=== PATIENT | male | born 1935 | race Caucasian/White ===

== ENCOUNTER 2018-10-21 17:05 | Inpatient (IN) | payer MEDICARE ==
[~2018-10-21] VITALS: Ht 175.3 cm; Wt 80.0 kg
[2018-10-21 17:42] LABS: BASOPHILS % (AUTO) 0.3 % (0-1); EOSINOPHILS # (AUTO) 0.1 X10'3 (0-0.9); EOSINOPHILS % (AUTO) 2.2 % (0-6); HEMATOCRIT 26.7 % (42.0-52.0); HEMOGLOBIN 8.9 g/dl (14.0-17.9); LYMPHOCYTES # (AUTO) 0.8 X10'3 (1.1-4.8); MEAN CORPUSCULAR HGB CONC 33.4 % (33.0-36.5); MEAN CORPUSCULAR VOLUME 95.9 FL (78-98); MEAN PLATELET VOLUME 7.9 FL (7.4-10.4); MONOCYTES # (AUTO) 0.6 X10'3 (0-0.9); MONOCYTES % (AUTO) 10.6 % (2-12); NEUTROPHILS # (AUTO) 3.9 X10'3 (1.8-7.7); NEUTROPHILS % (AUTO) 72.9 % (42-75); PLATELET COUNT 142 X10'3 (140-440); RED BLOOD COUNT 2.78 X10'6 (4.70-6.10); RED CELL DISTRIBUTION WIDTH 15.8 % (11.5-14.5); WHITE BLOOD COUNT 5.4 X10'3 (4.5-11.0)
[2018-10-21 17:58] LABS: ALANINE AMINOTRANSFERASE 23 U/L (12-78); ALBUMIN 2.3 G/DL (3.4-5.0); ALBUMIN/GLOBULIN RATIO 0.9 (1.1-1.5); ALKALINE PHOSPHATASE 101 IU/L (46-116); ANION GAP 11 (8-16); ASPARTATE AMINO TRANSFERASE 21 U/L (10-37); BILIRUBIN,TOTAL 0.3 MG/DL (0.1-1.0); BLOOD UREA NITROGEN 56 MG/DL (7-18); BUN/CREATININE RATIO 19.4 (5.4-32.0); CALCIUM 9.2 MG/DL (8.5-10.1); CHLORIDE 106 MMOL/L (99-107); CREATININE 2.89 MG/DL (0.60-1.10); GLUCOSE 105 MG/DL (70-104); MAGNESIUM 2.1 MG/DL (1.5-2.4); PHOSPHORUS 4.1 MG/DL (2.3-4.5); POTASSIUM 3.8 MMOL/L (3.5-5.1); SODIUM 139 MMOL/L (135-145); TOTAL CARBON DIOXIDE 22.2 MMOL/L (24-32); eGFR 21 ML/MIN
[2018-10-21 18:08] LABS: PARTIAL THROMBOPLASTIN TIME 26 SECONDS (22-32); PROTHROMBIN TIME 10.5 SECONDS (9.0-12.0)
[2018-10-21] MEDS ORDERED: aspirin 325mg tablet PO ONE (18:10)
[2018-10-21 18:24] LABS: CLARITY,URINE CLOUDY (Clear); COLOR,URINE YELLOW (Yellow); GLUCOSE, URINE NEGATIVE (Neg); KETONES,URINE NEGATIVE (Neg); LEUKOCYTE ESTERASE ,URINE SMALL (Neg); NITRITES, URINE NEGATIVE (Neg); OCCULT BLOOD,URINE MODERATE (Neg); PROTEIN,URINE >=300 mg/dl (Neg); UROBILINOGEN,URINE 0.2 E.U/dL (0.2-1.0)
[2018-10-21 18:26] LABS: UA COLLECTION TYPE STRAIGHT CATH
[2018-10-21] MEDS ORDERED: normal saline 1000ML IV soln IVB ONE (18:35)
[2018-10-21 18:38] LABS: BACTERIA,URINE 4+ /HPF (Neg); SQUAMOUS EPITHELIAL CELL,UR NONE SEEN /LPF (FEW); WBC,URINE TNTC /HPF (0-4)
[2018-10-21 18:39] LABS: RBC,URINE 0-2 /HPF (0-2)
[2018-10-21] MEDS ORDERED: CefTRIAXone/D5W-Rocephin 1gm 50 ML IV ONE (19:10)
[2018-10-21] MEDS ORDERED: mag hydrox/Alum hydrox/simeth 30ml oral suspension PO PRN (19:40)
[2018-10-21] MEDS ORDERED: ondansetron/PF 4mg/2ml inj IV PRN (19:40)
[2018-10-21] MEDS ORDERED: acetaminophen 325mg tablet PO PRN (19:40)
[2018-10-21] MEDS ORDERED: magnesium hydroxide 30ml (MOM) UD suspension PO PRN (19:40)
[2018-10-21] MEDS ORDERED: ALLO100T PO (19:42)
[2018-10-21] MEDS ORDERED: ASPI-1265 PO (19:42)
[2018-10-21] MEDS ORDERED: LISI10TA4 PO (19:57)
[2018-10-21] MEDS ORDERED: METO25TA6 PO (19:57)
[2018-10-21] MEDS ORDERED: TORS10TA17 PO (19:57)
[2018-10-21] MEDS ORDERED: OXYB10TA4 PO (19:57)
[2018-10-21] MEDS ORDERED: ATOR80TA PO (19:57)
[2018-10-21] MEDS ORDERED: CLON-529 PO (19:57)
[2018-10-21 20:15] LABS: HEMOGLOBIN A1C 5.7 % (4.5-6.2)
[2018-10-21] MEDS: heparin, porcine 5000 units/ml vial SQ SCH (20:16)
[2018-10-21] MEDS ORDERED: non-formulary drug (Atorvastatin Calcium* (Lipitor*) 1 TABLET) PO SCH (21:00)
[2018-10-21] MEDS: cloNIDine 0.1 mg tablet PO SCH (21:14)
[2018-10-21] MEDS: atorvastatin 20mg tablet PO SCH (21:14)
[2018-10-21 21:30] VITALS: BP 188/98
[2018-10-22 02:25] VITALS: BP 184/89
[2018-10-22 06:45] LABS: EOSINOPHILS # (AUTO) 0.2 X10'3 (0-0.9); EOSINOPHILS % (AUTO) 3.7 % (0-6); HEMATOCRIT 28.5 % (42.0-52.0); HEMOGLOBIN 9.6 g/dl (14.0-17.9); LYMPHOCYTES # (AUTO) 0.8 X10'3 (1.1-4.8); LYMPHOCYTES % (AUTO) 16.3 % (21-51); MEAN CORPUSCULAR HEMOGLOBIN 32.5 PG (27.0-31.0); MEAN CORPUSCULAR HGB CONC 33.8 % (33.0-36.5); MEAN CORPUSCULAR VOLUME 96.2 FL (78-98); MEAN PLATELET VOLUME 8.3 FL (7.4-10.4); MONOCYTES # (AUTO) 0.4 X10'3 (0-0.9); NEUTROPHILS # (AUTO) 3.3 X10'3 (1.8-7.7); PLATELET COUNT 129 X10'3 (140-440); RED BLOOD COUNT 2.97 X10'6 (4.70-6.10); RED CELL DISTRIBUTION WIDTH 15.7 % (11.5-14.5); WHITE BLOOD COUNT 4.7 X10'3 (4.5-11.0)
[2018-10-22 06:49] LABS: ALANINE AMINOTRANSFERASE 23 U/L (12-78); ALBUMIN 2.3 G/DL (3.4-5.0); ALBUMIN/GLOBULIN RATIO 0.9 (1.1-1.5); ALKALINE PHOSPHATASE 98 IU/L (46-116); ANION GAP 9 (8-16); ASPARTATE AMINO TRANSFERASE 21 U/L (10-37); BILIRUBIN,TOTAL 0.4 MG/DL (0.1-1.0); BLOOD UREA NITROGEN 51 MG/DL (7-18); BUN/CREATININE RATIO 19.7 (5.4-32.0); CALCIUM 9.2 MG/DL (8.5-10.1); CHLORIDE 108 MMOL/L (99-107); CREATININE 2.59 MG/DL (0.60-1.10); GLUCOSE 99 MG/DL (70-104); POTASSIUM 3.6 MMOL/L (3.5-5.1); SODIUM 140 MMOL/L (135-145); TOTAL CARBON DIOXIDE 23.2 MMOL/L (24-32); eGFR 24 ML/MIN
[2018-10-22 06:52] LABS: CHOL/HDL RATIO 2.1 (0.00-4.99); CHOLESTEROL 160 MG/DL (0-200); HDL CHOLESTEROL 75 MG/DL (35-60); LDL CHOLESTEROL 70 MG/DL (50-100); TRIGLYCERIDES 52 MG/DL (20-135)
[2018-10-22 07:04] VITALS: BP 191/94
[2018-10-22] MEDS ORDERED: hydrALAZINE 20mg/ml inj. IV PRN (08:00)
[2018-10-22] MEDS ORDERED: non-formulary drug (Torsemide 1 TAB) PO SCH (08:00)
[2018-10-22] MEDS ORDERED: non-formulary drug (Oxybutynin Chloride (Ditropan Xl) 1 TAB) PO SCH (08:00)
[2018-10-22] MEDS: CefTRIAXone/D5W-Rocephin 1gm 50 ML IV SCH (08:05)
[2018-10-22] MEDS: allopurinol 100mg tablet PO SCH ×2 (08:07→20:04)
[2018-10-22] MEDS: oxybutynin 5mg tablet PO SCH ×2 (08:07→20:04)
[2018-10-22] MEDS: cloNIDine 0.1 mg tablet PO SCH ×3 (08:07→20:04)
[2018-10-22] MEDS: heparin, porcine 5000 units/ml vial SQ SCH ×2 (08:07→20:04)
[2018-10-22] MEDS: aspirin 81mg tab.chew PO SCH (08:07)
[2018-10-22] MEDS: furosemide 20MG tablet PO SCH (08:07)
[2018-10-22] MEDS: amLODIPine 5mg tablet PO SCH (08:07)
[2018-10-22 10:38] VITALS: BP 132/82
[2018-10-22 14:19] VITALS: BP 150/67
[2018-10-22] MEDS ORDERED: LIDOcaine 2% 10ml TOPICAL JELLY (Urojet) MM ONE (15:50)
[2018-10-22 18:00] VITALS: BP 151/72
[2018-10-22] MEDS: lactobacillus rhamnosus 10,000 MMU CELLS/CAPSULE PO SCH (20:04)
[2018-10-22] MEDS: atorvastatin 20mg tablet PO SCH (20:04)
[2018-10-22 22:00] VITALS: BP 159/79
[2018-10-23 02:06] VITALS: BP 167/80
[2018-10-23 06:00] VITALS: BP 163/78
[2018-10-23 06:51] LABS: ALANINE AMINOTRANSFERASE 22 U/L (12-78); ALBUMIN 2.2 G/DL (3.4-5.0); ALBUMIN/GLOBULIN RATIO 0.8 (1.1-1.5); ALKALINE PHOSPHATASE 89 IU/L (46-116); ANION GAP 9 (8-16); ASPARTATE AMINO TRANSFERASE 17 U/L (10-37); BILIRUBIN,TOTAL 0.4 MG/DL (0.1-1.0); BLOOD UREA NITROGEN 51 MG/DL (7-18); BUN/CREATININE RATIO 19.3 (5.4-32.0); CALCIUM 9.2 MG/DL (8.5-10.1); CHLORIDE 109 MMOL/L (99-107); CREATININE 2.64 MG/DL (0.60-1.10); GLUCOSE 103 MG/DL (70-104); POTASSIUM 3.6 MMOL/L (3.5-5.1); SODIUM 140 MMOL/L (135-145); TOTAL CARBON DIOXIDE 22.3 MMOL/L (24-32); eGFR 23 ML/MIN
[2018-10-23 07:03] LABS: BASOPHILS % (AUTO) 0.5 % (0-1); EOSINOPHILS # (AUTO) 0.2 X10'3 (0-0.9); EOSINOPHILS % (AUTO) 3.5 % (0-6); HEMOGLOBIN 9.9 g/dl (14.0-17.9); LYMPHOCYTES # (AUTO) 0.8 X10'3 (1.1-4.8); LYMPHOCYTES % (AUTO) 13.6 % (21-51); MEAN CORPUSCULAR HEMOGLOBIN 32.7 PG (27.0-31.0); MEAN CORPUSCULAR HGB CONC 34.2 % (33.0-36.5); MEAN CORPUSCULAR VOLUME 95.7 FL (78-98); MEAN PLATELET VOLUME 8.3 FL (7.4-10.4); MONOCYTES # (AUTO) 0.4 X10'3 (0-0.9); MONOCYTES % (AUTO) 6.6 % (2-12); NEUTROPHILS # (AUTO) 4.6 X10'3 (1.8-7.7); NEUTROPHILS % (AUTO) 75.8 % (42-75); PLATELET COUNT 133 X10'3 (140-440); RED BLOOD COUNT 3.03 X10'6 (4.70-6.10); RED CELL DISTRIBUTION WIDTH 15.5 % (11.5-14.5)
[2018-10-23] MEDS: oxybutynin 5mg tablet PO SCH ×2 (08:00→20:32)
[2018-10-23] MEDS: aspirin 81mg tab.chew PO SCH (08:00)
[2018-10-23] MEDS: lactobacillus rhamnosus 10,000 MMU CELLS/CAPSULE PO SCH ×2 (08:00→20:31)
[2018-10-23] MEDS: allopurinol 100mg tablet PO SCH ×2 (08:00→20:32)
[2018-10-23] MEDS: amLODIPine 5mg tablet PO SCH (08:01)
[2018-10-23] MEDS: heparin, porcine 5000 units/ml vial SQ SCH ×2 (08:01→20:36)
[2018-10-23] MEDS: CefTRIAXone/D5W-Rocephin 1gm 50 ML IV SCH (08:01)
[2018-10-23] MEDS: furosemide 20MG tablet PO SCH (08:02)
[2018-10-23] MEDS: cloNIDine 0.1 mg tablet PO SCH ×3 (08:02→20:32)
[2018-10-23 10:00] VITALS: BP 141/78
[2018-10-23 13:00] VITALS: BP 161/74
[2018-10-23] MEDS: hyDRALAzine 10mg tablet PO SCH ×2 (15:39→23:13)
[2018-10-23 18:00] VITALS: BP 170/87
[2018-10-23] MEDS: atorvastatin 20mg tablet PO SCH (20:32)
[2018-10-23 22:00] VITALS: BP 169/91
[2018-10-24 06:00] VITALS: BP 182/84
[2018-10-24 06:53] LABS: BASOPHILS % (AUTO) 0.5 % (0-1); EOSINOPHILS # (AUTO) 0.2 X10'3 (0-0.9); EOSINOPHILS % (AUTO) 3.4 % (0-6); HEMATOCRIT 35.4 % (42.0-52.0); HEMOGLOBIN 11.9 g/dl (14.0-17.9); LYMPHOCYTES % (AUTO) 14.2 % (21-51); MEAN CORPUSCULAR HGB CONC 33.4 % (33.0-36.5); MEAN CORPUSCULAR VOLUME 95.9 FL (78-98); MEAN PLATELET VOLUME 8.3 FL (7.4-10.4); MONOCYTES # (AUTO) 0.4 X10'3 (0-0.9); MONOCYTES % (AUTO) 5.6 % (2-12); NEUTROPHILS # (AUTO) 5.2 X10'3 (1.8-7.7); NEUTROPHILS % (AUTO) 76.3 % (42-75); PLATELET COUNT 165 X10'3 (140-440); RED CELL DISTRIBUTION WIDTH 15.6 % (11.5-14.5); WHITE BLOOD COUNT 6.8 X10'3 (4.5-11.0)
[2018-10-24 07:23] LABS: ALANINE AMINOTRANSFERASE 25 U/L (12-78); ALBUMIN 2.5 G/DL (3.4-5.0); ALBUMIN/GLOBULIN RATIO 0.7 (1.1-1.5); ALKALINE PHOSPHATASE 107 IU/L (46-116); ANION GAP 11 (8-16); BILIRUBIN,TOTAL 0.4 MG/DL (0.1-1.0); BLOOD UREA NITROGEN 46 MG/DL (7-18); BUN/CREATININE RATIO 20.4 (5.4-32.0); CALCIUM 9.8 MG/DL (8.5-10.1); CHLORIDE 108 MMOL/L (99-107); CREATININE 2.25 MG/DL (0.60-1.10); GLUCOSE 106 MG/DL (70-104); SODIUM 140 MMOL/L (135-145); TOTAL PROTEIN 5.9 G/DL (6.4-8.2); eGFR 28 ML/MIN
[2018-10-24] MEDS: cloNIDine 0.1 mg tablet PO SCH ×3 (07:24→20:47)
[2018-10-24] MEDS: allopurinol 100mg tablet PO SCH ×2 (07:24→20:47)
[2018-10-24] MEDS: oxybutynin 5mg tablet PO SCH ×2 (07:24→20:46)
[2018-10-24] MEDS: lactobacillus rhamnosus 10,000 MMU CELLS/CAPSULE PO SCH ×2 (07:25→20:46)
[2018-10-24] MEDS: hyDRALAzine 10mg tablet PO SCH ×3 (07:25→23:58)
[2018-10-24] MEDS: aspirin 81mg tab.chew PO SCH (07:25)
[2018-10-24] MEDS: furosemide 20MG tablet PO SCH (07:25)
[2018-10-24] MEDS: CefTRIAXone/D5W-Rocephin 1gm 50 ML IV SCH (07:25)
[2018-10-24] MEDS: heparin, porcine 5000 units/ml vial SQ SCH ×2 (07:25→20:47)
[2018-10-24 07:27] LABS: ASPARTATE AMINO TRANSFERASE 30 U/L (10-37); POTASSIUM 4.2 MMOL/L (3.5-5.1)
[2018-10-24 10:00] VITALS: BP 142/81
[2018-10-24] MEDS: sulfamethoxazole/trimethoprim DS (800/160mg) tablet PO SCH ×2 (15:58→20:00)
[2018-10-24 18:00] VITALS: BP 179/90
[2018-10-24] MEDS: atorvastatin 20mg tablet PO SCH (20:47)
[2018-10-24 22:00] VITALS: BP 171/97
[2018-10-25 05:00] VITALS: BP 165/85
[2018-10-25 06:00] VITALS: BP 165/85
[2018-10-25 07:08] LABS: BASOPHILS % (AUTO) 0.8 % (0-1); EOSINOPHILS # (AUTO) 0.2 X10'3 (0-0.9); EOSINOPHILS % (AUTO) 3.9 % (0-6); HEMATOCRIT 28.5 % (42.0-52.0); HEMOGLOBIN 9.6 g/dl (14.0-17.9); LYMPHOCYTES # (AUTO) 0.7 X10'3 (1.1-4.8); LYMPHOCYTES % (AUTO) 12.3 % (21-51); MEAN CORPUSCULAR HEMOGLOBIN 32.4 PG (27.0-31.0); MEAN CORPUSCULAR HGB CONC 33.7 % (33.0-36.5); MEAN CORPUSCULAR VOLUME 96.2 FL (78-98); MEAN PLATELET VOLUME 8.2 FL (7.4-10.4); MONOCYTES # (AUTO) 0.4 X10'3 (0-0.9); MONOCYTES % (AUTO) 7.3 % (2-12); NEUTROPHILS # (AUTO) 4.3 X10'3 (1.8-7.7); NEUTROPHILS % (AUTO) 75.7 % (42-75); PLATELET COUNT 133 X10'3 (140-440); RED BLOOD COUNT 2.97 X10'6 (4.70-6.10); RED CELL DISTRIBUTION WIDTH 15.6 % (11.5-14.5); WHITE BLOOD COUNT 5.7 X10'3 (4.5-11.0)
[2018-10-25 07:16] LABS: ALANINE AMINOTRANSFERASE 24 U/L (12-78); ALBUMIN/GLOBULIN RATIO 0.7 (1.1-1.5); ALKALINE PHOSPHATASE 86 IU/L (46-116); ANION GAP 7 (8-16); ASPARTATE AMINO TRANSFERASE 20 U/L (10-37); BILIRUBIN,TOTAL 0.4 MG/DL (0.1-1.0); BLOOD UREA NITROGEN 45 MG/DL (7-18); BUN/CREATININE RATIO 20.2 (5.4-32.0); CALCIUM 9.2 MG/DL (8.5-10.1); CHLORIDE 109 MMOL/L (99-107); CREATININE 2.23 MG/DL (0.60-1.10); GLUCOSE 103 MG/DL (70-104); POTASSIUM 3.6 MMOL/L (3.5-5.1); SODIUM 139 MMOL/L (135-145); TOTAL CARBON DIOXIDE 22.8 MMOL/L (24-32); TOTAL PROTEIN 4.9 G/DL (6.4-8.2); eGFR 28 ML/MIN
[2018-10-25] MEDS: lactobacillus rhamnosus 10,000 MMU CELLS/CAPSULE PO SCH (08:37)
[2018-10-25] MEDS: aspirin 81mg tab.chew PO SCH (08:38)
[2018-10-25] MEDS: hyDRALAzine 10mg tablet PO SCH (08:38)
[2018-10-25] MEDS: sulfamethoxazole/trimethoprim DS (800/160mg) tablet PO SCH (08:39)
[2018-10-25] MEDS: oxybutynin 5mg tablet PO SCH (08:39)
[2018-10-25] MEDS: furosemide 20MG tablet PO SCH (08:39)
[2018-10-25] MEDS: allopurinol 100mg tablet PO SCH (08:39)
[2018-10-25] MEDS: cloNIDine 0.1 mg tablet PO SCH (08:39)
[2018-10-25] MEDS: heparin, porcine 5000 units/ml vial SQ SCH (08:40)
[2018-10-25 10:00] VITALS: BP 151/84
[2018-10-25] MEDS ORDERED: BACDS PO (10:31)
[2018-10-25] MEDS ORDERED: tamsulosin 0.4mg capsule PO SCH (12:25)
[2018-10-25] MEDS ORDERED: FLO0.4C PO (12:26)
== END 2018-10-25 13:25 | disposition home health service (06) | DRG 280 ==
LOC: ER 17:05 → ORTHO 4S 19:38
PROVIDERS: ADMIT Internal Medicine; ATTEND Family Medicine
DX: I21.A1 Myocardial infarction type 2 (principal); G93.41 Metabolic encephalopathy; I50.33 Acute on chronic diastolic (congestive) heart failure; E43 Unspecified severe protein-calorie malnutrition; N17.9 Acute kidney failure, unspecified; N39.0 Urinary tract infection, site not specified; I13.0 Hypertensive heart and chronic kidney disease with heart failure and stage 1 through stage 4 chronic kidney disease, or unspecified chronic kidney disease; R00.1 Bradycardia, unspecified; N18.3 Chronic kidney disease, stage 3 (moderate); B96.20 Unspecified Escherichia coli [E. coli] as the cause of diseases classified elsewhere; D63.8 Anemia in other chronic diseases classified elsewhere; E78.00 Pure hypercholesterolemia, unspecified; E78.5 Hyperlipidemia, unspecified; G31.84 Mild cognitive impairment of uncertain or unknown etiology; N32.89 Other specified disorders of bladder; N31.9 Neuromuscular dysfunction of bladder, unspecified; N13.9 Obstructive and reflux uropathy, unspecified; M10.9 Gout, unspecified; R29.810 Facial weakness; R47.1 Dysarthria and anarthria; R32 Unspecified urinary incontinence; R33.9 Retention of urine, unspecified; Z66 Do not resuscitate; Z90.79 Acquired absence of other genital organ(s); Z79.82 Long term (current) use of aspirin; Z79.899 Other long term (current) drug therapy; Z86.73 Personal history of transient ischemic attack (TIA), and cerebral infarction without residual deficits; Z85.46 Personal history of malignant neoplasm of prostate; Z68.26 Body mass index [BMI] 26.0-26.9, adult
CPT/HCPCS: 36415; 70450; 71045; 76775; 80053; 80061; 81001; 83036; 83735; 83880; 84100; 84484; 85025; 85610; 85730; 87070; 87077; 87088; 87186; 93005; 93306; 96374; 97110; 97116; 97162; 97530; 99285; G0378; J0360; J0696; J1644